=== PATIENT | female | born 1945 | race Caucasian/White ===

== ENCOUNTER → 2016-06-24 | Outpatient (CLI) | payer OTHER | LOC: FIMAGING 15:20 | DX: Z12.31 Encounter for screening mammogram for malignant neoplasm of breast (principal) | CPT/HCPCS: G0202 ==

== ENCOUNTER 2016-12-04 16:32 | Emergency (ER) | payer OTHER ==
[2016-12-04 16:42] VITALS: RESP 16
--- NOTE | 2016-12-04 16:52 | EDPHY ---
H & P Stated Complaint: dog hit pt [place] [employer] /, h/a and nausea episodes since, on pradaxa Time Seen by Provider: 12/04/16 16:44 - Personal History Current Tetanus/Diphtheria Vaccine: Unsure Current Tetanus Diphtheria and Acellular Pertussis (TDAP): Unsure - Medical/Surgical History Hx Asthma: No Hx Chronic Respiratory Disease: No Hx Diabetes: Yes Hx Cardiac Disease: No Hx Renal Disease: No Hx Cirrhosis: No Hx Alcoholism: No Hx HIV/AIDS: No Hx Splenectomy or Spleen Trauma: No Other PMH: TIA, HTN, afib, - Social History Smoking Status: Former smoker Constitutional: Initial Vital Signs Temperature (C) 36.5 C 12/04/16 16:39 Heart Rate 76 12/04/16 16:39 Respiratory Rate 16 12/04/16 16:39 Blood Pressure 148/81 H 12/04/16 16:39 O2 Sat (%) 97 12/04/16 16:39 O2 Delivery Mode Room Air Allergies/Adverse Reactions: No Known Allergies Allergy (Verified 11/27/15 17:55) Home Medications: Medication Instructions Recorded Atorvastatin Calcium [Lipitor 40 80 mg PO HS 07/20/13 mg (RX)] Calcium Carb W/Vit D [Calcium Carb 500 mg PO BID 07/20/13 W/Vit D 500/200 (OTC)] Cholecalciferol Vit D3 [Vitamin D3 1,000 units PO DAILY 07/20/13 (OTC)] Dabigatran Etexilate Mesyl 150 mg PO BID 07/20/13 [Pradaxa 150 MG (RX)] Herbals/Supplements -Info Only 1 each PO AD 07/20/13 Levothyroxine [Synthroid 112 mcg 112 mcg PO DAILY06 07/20/13 (RX)] Levothyroxine [Synthroid 125 mcg 125 mcg PO Q3D 07/20/13 (RX)] [place]-3 Fatty Acids [Fish Oil 1000 1,000 mg PO DAILY 07/20/13 mg (OTC)] metFORMIN HCL [Glucophage] 1,000 mg PO BIDMEAL 07/20/13 Ondansetron Odt [Zofran Odt 4 mg 4 mg PO Q4 PRN #10 tab 12/04/16 (RX)] Medical Decision Making - Diagnostics Imaging Results: Imaging Impressions Head CT 12/04/16 16:56 Impression: 1. Moderate atrophy. 2. No acute hemorrhage, hydrocephalus, or mass effect. 3. Cerebrovascular atherosclerosis. 4. No definite acute infarct. 5. Mild microvascular ischemic gliosis. 6. No epidural or subdural hematoma. 7. No sinusitis. Findings and recommendations discussed with Emergency Department physician, Robert Cabral MD at 17:28 hour, 12/04/2016. Final report concurs with initial preliminary interpretation. ED Course/Re-evaluation: CHIEF COMPLAINT: Head injury HISTORY OF PRESENT ILLNESS: The patient is an anticoagulated 71 y/o female who complains of a headache for the past 5 days after an impact with her dog. She has a history that includes atrial fibrillation, TIA, hypertension, and diabetes. She states for the past week she has been bumping her head on different objects in her house. Five days ago her dog ran into the left lateral side of her head, and she has since had nausea without vomiting and a persistent headache. She currently has a dull headache around her head as well as mild right lateral neck pain. Denies loss of consciousness, speech difficulty , paraesthesia in limbs. REVIEW OF SYSTEMS: A 10 point review of systems was performed and is negative with the exception of the elements mentioned in the history of present illness. PHYSICAL EXAM: HR, BP, O2 Sat, RR. Temp noted General Appearance: Alert, well hydrated, appropriate, and non-toxic appearing. Head: Small bruise on lateral side of right eye. No scalp tenderness or other obvious injury Eyes: Pupils equal, round, reactive to light and accommodation, EOMI, no trauma , no injection. Ears: Clear bilaterally, no perforation, normal landmarks Nose: Atraumatic, no rhinorrhea, clear. Throat: Mucus membranes moist. Neck: Supple, nontender over midline cervical spine, no lymphadenopathy. Respiratory: No retractions, no distress, no wheezes, and no accessory muscle use. Lungs are clear to auscultation bilaterally. Cardiovascular: Regular rate and rhythm, no murmurs, rubs, or gallops. Good capillary refill all extremities. Gastrointestinal: Abdomen is soft, nontender, non-distended, no masses, no rebound, no guarding, no peritoneal signs. Musculoskeletal: Normal active ROM of all extremities, atraumatic. Neurological: Alert, appropriate, and interactive. Non-focal neuro. Skin: No rashes, good turgor, no nodules on palpation. Past medical history: Atrial fibrillation, TIA, hypertension, and diabetes Past surgical history: Declines Family history: Declines Social history: Lives in [place], works at , former smoker. DIAGNOSTICS/PROCEDURES/CRITICAL CARE TIME: Head CT: Negative DIFFERENTIAL DIAGNOSIS: The differential diagnosis for the patient's head injury included but was not limited to concussion, skull fracture, intra- parenchymal contusion, subarachnoid, subdural and epidural hematoma. MEDICAL DECISION MAKING: The patient is an anticoagulated 71 y/o female who presents with a headache for the past 5 days after an impact with her dog. She does have mild right lateral neck tenderness. Due to anticoagulation status with head trauma and persistent headache, we performed a head CT to rule out acute intracranial injury. The head CT was negative. Zofran administered for her nausea. Discussed plan with patient and return precautions, she is comfortable with this plan. Departure - Departure Disposition: Home, Routine, Self-Care Clinical Impression: Post-traumatic headache Qualifiers: Headache chronicity pattern: acute headache Intractability: not intractable Qualified Code(s): G44.319 - Acute post-traumatic headache, not intractable Condition: Good Instructions: General Headache (ED) Additional Instructions: 1. Take Zofran as prescribed when needed for nausea. 2. Follow up with your primary care provider on Wednesday for unimproved symptoms. 3. Return to the ED for sever pain, weakness, numbness, vision changes, or worsening of condition. Referrals: JAVON SMITH [Primary Care Provider] - As per Instructions Prescriptions: Ondansetron Odt [Zofran Odt 4 mg (RX)] 4 mg PO Q4 PRN #10 tab PRN Reason: Nausea/Vomiting, Use 1st Report Scribed for: Robert Cabral Report Scribed by: Nell Perez Date of Report: 12/04/16 Time of Report: 17:33
[2016-12-04 18:01] VITALS: BP 110/62; PULSE 69; TEMP 98.3; O2SAT 92
== END 2016-12-04 18:01 | disposition home or self-care (01) ==
DX: G44.319 Acute post-traumatic headache, not intractable (principal); I10 Essential (primary) hypertension; E11.9 Type 2 diabetes mellitus without complications; Z87.891 Personal history of nicotine dependence; Z79.84 Long term (current) use of oral hypoglycemic drugs; W55.89XA Other contact with other mammals, initial encounter

== ENCOUNTER 2017-09-24 15:54 | Observation (INO) | payer OTHER ==
--- NOTE | 2017-09-24 16:54 | EDPHY ---
H & P Stated Complaint: Disoriented Time Seen by Provider: 09/24/17 15:59 HPI/ROS: CHIEF COMPLAINT: Confusion HISTORY OF PRESENT ILLNESS: This is a 72-year-old female who arrives by ambulance. She was on the phone with her boss and apparently seemed confused, prompting her boss to call the patient's . Her called 911. I have not yet been able to speak with him. The patient cannot recall much of what happened. She remembers being on the phone with her boss but does not recall being confused. She is not certain what happened in between then and now. She thinks that she slept much of the day and I note that she has in her pajamas at 4:00 p.m.. She has a history of hypertension, atrial fibrillation on Pradaxa, and a TIA (CVA?) in 2008. The patient tells me that she recently saw a neurologist who thinks that she actually had a stroke in 2008, not a TIA. She saw Dr. Catalina Coles. It is not clear what imaging has been performed recently. Patient reports global headache today. She denies trauma. She feels somewhat "fuzzy". 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 Her arrived and I interviewed him at 5:00 p.m.. He tells me that he last saw her normal at about 10:00 p.m. last night. When she awoke this morning he thought that she seemed slower than usual, perhaps slightly confused. She did not know what day it was, which is unusual for her. He spent the morning in his office and then went to the store. When he returned, around 2:00 p.m., she was on the telephone with her boss who asked to speak with him. Her boss told him that his was having trouble speaking, using the wrong words, and seemed confused. At that point he called 911. When the paramedics arrived she continued to be confused about the date and reportedly also gave them the wrong date. Although she now seems much better her says that she is not quite as verbal as she normally would be and that she still seems to be having some difficulty collecting her thoughts and speaking them. He has not heard any slurred speech. REVIEW OF SYSTEMS: A ten point review of systems was performed and is negative with the exception of the items mentioned in the HPI. Past medical history: 1. Atrial fibrillation 2. Hypertension 3. TIA or CVA in 2008 4. GERD next 5. Hyperlipidemia 6. IBS Social history: She lives with her . They live between [place] and [place]. 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 She continues to work at the [employer]. She does not use tobacco products. She used to drink alcohol, wine, nightly with dinner but has not had alcohol over the last few months because she has been having some problems with an upset stomach. General Appearance: Alert. Vital signs reviewed. Blood pressure 177/88. Head: Normocephalic atraumatic. Eyes: Pupils equal and round, no conjunctival injection, no discharge. Anicteric. ENT, Mouth: Mucous membranes are moist, no oropharyngeal erythema or edema. Neck: No lymphadenopathy, supple. Respiratory: Lungs are clear to auscultation; no wheezes, rales, or rhonchi. Cardiovascular: Regular rate and rhythm; systolic murmur, no rub or gallop. Gastrointestinal: Abdomen is soft and nontender, no masses or organomegaly, bowel sounds normal. Skin: Warm and dry, no rashes on exposed skin, normal color. Back: Nontender to palpation over the thoracolumbar spine. No CVAT. Extremities: No lower extremity edema, no calf tenderness or swelling. Neurological: Alert. Oriented to person, place, and situation. She gives the date accurately except for the year which she states is 2014, after some thought. Speech is not slurred. Moving all four extremities easily and equally. Cranial nerves II through XII are examined and are intact (visual acuity not tested). Strength is 5 over 5 bilaterally with testing of all major motor groups. Sensation is intact to light touch over all 4 extremities. Deep tendon reflexes are 2+ in the biceps and knees bilaterally. Redspm-ju-pynf is performed accurately. Heel to [place] is accurate. NIHSS 0. Psychiatric: Normal affect. - Personal History Current Tetanus/Diphtheria Vaccine: Yes - Medical/Surgical History Hx Asthma: No Hx Chronic Respiratory Disease: No Hx Diabetes: Yes Hx Cardiac Disease: No Hx Renal Disease: No Hx Cirrhosis: No Hx Alcoholism: No Hx HIV/AIDS: No Hx Splenectomy or Spleen Trauma: No Other PMH: TIA, HTN, afib, - Social History Smoking Status: Former smoker Constitutional: Initial Vital Signs Temperature (C) 37.3 C 09/24/17 16:10 Heart Rate 67 09/24/17 16:10 Respiratory Rate 22 H 09/24/17 16:10 Blood Pressure 177/88 H 09/24/17 16:10 O2 Sat (%) 96 09/24/17 16:10 O2 Delivery Mode Room Air Allergies/Adverse Reactions: No Known Allergies Allergy (Verified 11/27/15 17:55) Home Medications: Medication Instructions Recorded Atorvastatin Calcium [Lipitor 40 80 mg PO HS 09/24/17 mg (*)] Cholecalciferol Vit D3 [Vitamin D3 1,000 units PO DAILY 09/24/17 (*)] Dabigatran Etexilate Mesyl 150 mg PO BID 09/24/17 [Pradaxa 150 MG (*)] Herbals/Supplements -Info Only 1 ea PO DAILY 09/24/17 Levothyroxine [Synthroid 100 mcg 100 mcg PO DAILY06 09/24/17 (*)] Ondansetron Odt [Zofran Odt 4 mg 4 mg PO Q4H PRN 09/24/17 (*)] Vayacog 100-19 Capsule 1 cap PO DAILY 09/24/17 Medical Decision Making - Diagnostics EKG Interpretation: 12 lead EKG is interpreted in Trace master View by emergency department physician. ED Course/Re-evaluation: 72-year-old high functioning female who presents with apparent confusion. At time of my evaluation she is neurologically intact with an NIHSS of 0. However, she does gives the year as 2014. Otherwise she is fully oriented. She has no focal neurologic signs. Head CT with atrophy and probably white matter small vessel disease. No acute findings. ICH was a possibility, as she is on an anticoagulant. I reviewed the images and discussed them with Dr. Michael Corona. Doubt stroke, TIA possible. Her previous episode in 2005 is thought to have been stroke. She is on pradaxa for Afib and is currently in sinus rhythm. She does not drink alcohol and I do not suspect intoxication. There is no evidence to support a diagnosis of infection. On review of records, I note that she was admitted in 2013 with confusion and a sodium of 128. She is hyponatremic with sodium of 128 tonight and that seems the most likely cause of her encephalopathy. She does not describe drinking copious amounts of water, but does have some diarrhea. She is being admitted to the hospitalist service for further evaluation and treatment of her hyponatremia. Differential Diagnosis: Altered mental status including but not limited to hypoglycemia, infectious process, electrolyte abnormality, head injury and intoxicants. - Data Points Laboratory Results: Laboratory Results 09/24/17 16:30 09/24/17 16:26 09/24/17 09/24/17 17:00 15:54 TSH 0.187 uIU/mL L uIU/mL (0.465-4.680) Cortisol AM Sample 27.1 ug/dL H ug/dL (4.5-22.7) Urine Osmolality 508 mosmo/kg mosmo/kg (300-900) Medications Given: Atorvastatin Calcium (Lipitor) 80 mg PO HS KATE Stop: 03/23/18 20:59 Last Admin: 09/24/17 20:44 Dose: 80 mg Dabigatran (Pradaxa) 150 mg PO BID KATE Stop: 03/23/18 20:59 Last Admin: 09/24/17 20:43 Dose: 150 mg Levothyroxine Sodium (Synthroid) 100 mcg PO DAILY06 KATE Stop: 03/24/18 05:59 Last Admin: 09/25/17 06:23 Dose: 100 mcg Departure - Departure Disposition: [facility] Inpatient Acute Clinical Impression: Hyponatremia Condition: Fair
--- NOTE | 2017-09-24 17:00 | CPEKG ---
Heart Rate: 65 RR Interval: 923 P-R Interval: 172 QRSD Interval: 92 QT Interval: 428 QTC Interval: 445 P [place]: 43 QRS [place]: -29 T Wave [place]: -6 EKG Severity - ABNORMAL ECG - EKG Impression: SINUS RHYTHM EKG Impression: LVH BY VOLTAGE EKG Impression: BORDERLINE T ABNORMALITIES, INFERIOR LEADS Electronically Signed By: Antonietta Rae 24-Sep-2017 23:31:43
[2017-09-24 17:15] LABS: INR 1.27 (0.83-1.16); PLATELET COUNT 283 10^3/uL (150-400); PROTIME(PATIENT) 16.1 SEC (12.0-15.0)
[2017-09-24] MEDS ORDERED: ONDANSETRON DISINTEGRATING 4 MG TAB PO PRN (19:16)
--- NOTE | 2017-09-24 19:38 | GHP ---
[f rep st] HISTORY AND PHYSICAL DATE OF ADMISSION: 09/24/2017 CHIEF COMPLAINT: Confusion. HISTORY OF PRESENT ILLNESS: This is a 72-year-old female with history of atrial fibrillation, prior stroke, and similar episode of confusion 4 years ago that was attributed to hyponatremia. The patient awoke this morning and was somewhat out of sorts per her . She was not aware that today was the first day of September which the patient's says is unusual for her. The patient we nt about her normal day but at around 2:30 while on the phone with a colleague, she became very confu sed to the point where her became concerned and called 911. The patient denies any focal numbness or weakness. Currently, her confusion is getting better. She denies drinking excessive amounts of water. She tries to drink several large glasses per day, but de nies drinking gallons. She also has irritable bowel syndrome and does have frequent diarrhea. She s tates her diet is well balanced and described as regular. PAST MEDICAL HISTORY: 1. Atrial fibrillation. 2. CVA. 3. Diabetes type 2. 4. Similar episode 4 years ago attributed to hyponatremia. 5. Hypothyroidism. HOME MEDICATIONS: Reviewed. Refer to [employer] for details. PAST SURGICAL HISTORY: Denies. ALLERGIES: No known drug allergies. SOCIAL HISTORY: She is a former smoker. She works at [employer]. She denies any alcohol or illicit drug us e. FAMILY HISTORY: Reviewed and noncontributory, but is significant for coronary artery disease in her father who at the age of 64. REVIEW OF SYSTEMS: Comprehensive 10-point review of systems was done and negative, except for as men tioned in the HPI. PHYSICAL EXAMINATION: VITAL SIGNS: Blood pressure 154/92, pulse of 67, respiratory rate 16, O2 satu ration 92% on room air. Temperature afebrile. GENERAL: No acute distress. HEAD: Normocephalic, a traumatic. EYES: PERRLA. Sclerae are anicteric. MOUTH: Moist mucous membranes. NECK: Supple. No lymphadenopathy. CARDIOVASCULAR: Regular rate and rhythm with systolic murmur at right upper rashid rnal border. No JVD or lower extremity edema. PULMONARY: Lungs are clear. No wheezes, rales, or r honchi. ABDOMEN: Soft, nontender, nondistended. No guarding or rebound tenderness. Normoactive costa wel sounds. EXTREMITIES: No clubbing or cyanosis. NEURO: Cranial nerves 2-12 grossly intact. The re is no facial droop. No pronator drift. Speech is normal. Alert and oriented to person, place, a nd time at the time of my exam. DIAGNOSTICS: EKG, which I visualized and personally interpreted, shows sinus rhythm, rate 65 beats p er minute. No acute ischemic changes. There is some evidence of LVH. Head CT shows no acute findin gs. WBC is 10.2, hemoglobin 15.8, hematocrit 42, platelets 283. Sodium 128, potassium 4.1, chloride 96, CO2 of 16, BUN 9, creatinine 0.5, glucose 117. UA: 1+ ketones, 5-10 RBCs, 2+ glucose. ASSESSMENT AND PLAN: This is a 72-year-old female with history of atrial fibrillation, previous stro ke and previous episode of confusion attributed to hyponatremia, presenting with: 1. Acute encephalopathy, most likely metabolic in the setting of hyponatremia of unclear etiology. 2. History of atrial fibrillation and cerebrovascular accident, anticoagulated with Pradaxa. 3. History of hypothyroidism. 4. History of diabetes mellitus type 2, appears to be controlled. PLAN: 1. Place on observation. 2. Will work up hyponatremia to evaluate for SIADH and other causes. 3. Check TSH given her hyponatremia. 4. Consider workup of diarrhea which is likely contributing to her hyponatremia if diarrhea persists . /[id number]/MODL
[2017-09-24] MEDS: DABIGATRAN ETEXILATE MESYL 150 MG CAP PO SCH (20:43)
[2017-09-24] MEDS ORDERED: ATORVASTATIN CALCIUM 40 MG TAB PO SCH (21:00)
[2017-09-25 04:37] LABS: PLATELET COUNT 256 10^3/uL (150-400)
[2017-09-25] MEDS ORDERED: LEVOTHYROXINE 100 MCG TAB PO SCH (06:00)
[2017-09-25 07:56] VITALS: BP 145/72
[2017-09-25] MEDS: DABIGATRAN ETEXILATE MESYL 150 MG CAP PO SCH (08:20)
[2017-09-25] MEDS ORDERED: VAYACOG PO SCH (09:00)
[2017-09-25] MEDS ORDERED: CHOLECALCIFEROL VIT D3 1,000 UNITS TAB PO SCH (09:00)
[2017-09-25] MEDS ORDERED: NS 1,000 ML IV ONE (09:05)
--- NOTE | 2017-09-25 14:06 | GDS ---
[f rep st] DISCHARGE SUMMARY FINAL DIAGNOSES: 1. Acute encephalopathy. 2. Hyponatremia. 3. Mixed metabolic acidosis. 4. Irritable bowel syndrome/diarrhea. 5. Diabetes mellitus. 6. Atrial fibrillation. 7. History of cerebrovascular accident. 8. Hypothyroid, on replacement. HOSPITAL COURSE: A 72-year-old female admitted with acute encephalopathy/confusion, found to be hypo natremic. Urine osms consistent with hypovolemia. Sodium markedly improved with 1 L of normal salin e. Her mental status is back to her normal, and her sodium is 136 on discharge. She was also quite acidotic on admission. I suspect that this was due to bicarbonate loss from signi ficant diarrhea. This has resolved with fluids as well. Bicarbonate on discharge is 22. We had a l maria guadalupe discussion about her diarrhea. She has been diagnosed with IBS. Potential other causes include metformin, as well as iatrogenic hyperthyroid (her TSH here is 0.187). I recommend stopping her metf ormin for 2 reasons; 1, that it may cause diarrhea; and 2, that it may cause an acidosis. She will f ollow up with Dr. Jimenes in 1-2 weeks to determine ongoing diabetes management. I also recommend t hat she have a TSH rechecked when she is not acutely ill in about 2 weeks as well. She may need some adjustments in her Synthroid dose. For now, she will continue her other treatments without change. FOLLOWUP: Dr. Jimenes to follow up on her diabetes as noted above, as well as her hypothyroid as no elias above. /[id number]/MODL
--- NOTE | 2017-09-25 15:38 | ASMTCMCOM ---
CM Note CM Note Notes: CM chart review. Patient is 72 year old female admitted via [facility] ED for confusion and has history of A-fib, HTN, TIA/CVA in 2008, treated for hyponatremia. Patient lives at home with , [place], [facility]. Patient has discharge orders, CM met with patient and delivered IM, patient signed receipt and states her will be taking her home and helping with follow up recommendations patient states she will follow up with her PCP next week. CM available to support any unidentified D/C needs. D/C plan: Home independently this afternoon. Date Signed: 09/25/2017 03:37 PM Electronically Signed By:Alexandra Whitely
== END 2017-09-25 16:05 | disposition home or self-care (01) ==
LOC: EDUNIT# → INTOOBSV 18:06 → F2W 19:30
PROVIDERS: ADMIT Family Medicine; ATTEND Family Medicine
DX: G93.40 Encephalopathy, unspecified (principal); E87.1 Hypo-osmolality and hyponatremia; E87.4 Mixed disorder of acid-base balance; K58.0 Irritable bowel syndrome with diarrhea; E11.9 Type 2 diabetes mellitus without complications; I48.91 Unspecified atrial fibrillation; E03.9 Hypothyroidism, unspecified; Z86.73 Personal history of transient ischemic attack (TIA), and cerebral infarction without residual deficits; Z87.891 Personal history of nicotine dependence
CPT/HCPCS: 70450; 93005; 99285; G0378

== ENCOUNTER → 2017-10-14 | Outpatient (CLI) | payer OTHER | LOC: BHFA 14:45 | PROVIDERS: ATTEND Internal Medicine Cardiovascular Disease | DX: R01.1 Cardiac murmur, unspecified (principal); I48.91 Unspecified atrial fibrillation ==

== ENCOUNTER 2018-07-24 15:38 | Emergency (ER) | payer OTHER ==
--- NOTE | 2018-07-24 16:09 | EDPHY ---
HPI/HX/ROS/PE/MDM Narrative: CHIEF COMPLAINT: Confusion, memory loss HPI: This patient is an anticoagulated (Pradaxa) 73 year old female with history of diabetes, atrial fibrillation, IBS, and hypothyroidism. She arrives today with her stating "I've been very confused most of the day". She cannot remember most of the day including whether she took her regular medications or had anything to drink. She drove herself from [place] to the [facility] where she works but could not remember why she did when she arrived, and following this decided to come to the ED for evaluation. She has history of possible TIA vs stroke in 2009 and history of acute encephalopathy secondary to dehydration in 2018. She notes she has had several episodes of diarrhea related to her IBS recently. She states her BGL has been stable lately. Additionally, she notes she fell yesterday while hiking and struck the back of her head. Her feet are currently slightly tingly bilaterally. She denies any other paresthesias, numbness, or weakness in her extremities. She denies any marijuana use. Currently, she is feeling better than earlier, though not back to normal, and complains of headache as well. No nausea, vomiting, chest pain, shortness of breath, or other associated symptoms. REVIEW OF SYSTEMS: A comprehensive 10 system review of systems is otherwise negative aside from elements mentioned in the history of present illness and medical decision making. PMH: 1. Atrial fibrillation (Pradaxa) 2. Diabetes mellitus (Metformin) 3. Hypothyroidism (Levothyroxine) Past medical records reviewed including admission for confusion secondary to hyponatremia/hypovolemia 09/24/2017. SOCIAL HISTORY: Works at the [employer]. , at bedside. Lives in [place]. PHYSICAL EXAM: General:Patient is alert, in no acute distress. ENT:Eyes are normal to inspection. ENT inspection normal. Neck: Normal inspection. Full range of motion. Respiratory:No respiratory distress. Breath sounds normal bilaterally. Cardiovascular: Regular rate and rhythm. Strong peripheral pulses. Normal cap refill. Abdomen:The abdomen is nontender to palpation. There are no peritoneal signs. There are normal bowel sounds. Back: Normal to inspection. No tenderness to palpation. Skin: Normal color. No rash. Warm and dry. Extremities: Normal appearance. Full range of motion. Neuro: Oriented x3. Normal motor function. Normal sensory function. ED Course: 73 y/o female presents with confusion and amnesia beginning this morning. No focal neuro deficits on exam. She continues to feel slightly confused, though improved compared to earlier today. Plan for EKG, CT head, labs including CBC, chemistries, troponin, UA. EKG was ordered and interpreted by myself. Please see [facility] system for official reading. Reviewed laboratory studies. These are largely unremarkable. No evidence of electrolyte imbalance, infection. UA negative for UTI. BGL at baseline for patient. 16:[address] Corona, radiologist. CT head negative for acute processes. Reassessed patient, discussed imaging and laboratory results. She feels better currently. Plan for MRI brain for further evaluation. 17:[address] Corona, radiologist. MRI brain negative for acute processes. Significant atrophy noted. Reassessed, discussed MRI results. Patient continues to feel well and asymptomatic. Plan to discharge home in good condition with referral to neurology. Follow up and return precautions discussed. She is comfortable with this plan. MDM: This patient presents with altered mental status, best described as generalized confusion, which is since resolved. Looking through her chart, she appears to have evidence of multiple episodes similar to this one in the past. She has been seen by a neurologist with a negative workup to date. We performed an extensive workup here in the emergency department today including negative labs , CT and MRI of the brain. Given lack of significant abnormal findings, this seems most consistent with possible onset of dementia. I had very serious discussion with the patient and her regarding her safety. In particular , I strongly stressed that she should not be allowed to drive or put herself or others in any position of potential harm when she is experiencing these symptoms. I also stressed the need for close Neurology follow-up. - Data Points Imaging Results: Imaging Impressions Head CT 07/24/18 16:22 Impression: Elderly brain with atrophy and probable white matter small vessel disease. Nothing acute is identified. Results called and discussed with Fahad Callejas MD on 07/24/2018 at 16:47. Brain MRI 07/24/18 16:52 Impression: 1. Atrophy and probable small vessel ischemic disease are noted. 2. Negative for acute ischemia. Imaging: Discussed imaging studies w/ on call pharmacy technician Radiologist Laboratory Results: Laboratory Results 07/24/18 16:10 07/24/18 16:10 07/24/18 07/24/1819 16:14 16:10 16:10 WBC 8.68 10^3/uL 10^3/uL (3.80-9.50) RBC 4.86 10^6/uL 10^6/uL (4.18-5.33) Hgb 15.8 g/dL g/dL (12.6-16.3) Hct 44.3 % % (38.0-47.0) MCV 91.2 fL fL (81.5-99.8) MCH 32.5 pg pg (27.9-34.1) MCHC 35.7 g/dL g/dL (32.4-36.7) RDW 11.2 % L % (11.5-15.2) Plt Count 292 10^3/uL 10^3/uL (150-400) MPV 9.1 fL fL (8.7-11.7) Neut % (Auto) 67.0 % % (39.3-74.2) Lymph % (Auto) 25.3 % % (15.0-45.0) [place] % (Auto) 6.5 % % (4.5-13.0) Eos % (Auto) 0.7 % % (0.6-7.6) Baso % (Auto) 0.3 % % (0.3-1.7) Nucleat RBC Rel Count 0.0 % % (0.0-0.2) Absolute Neuts (auto) 5.81 10^3/uL 10^3/uL (1.70-6.50) Absolute Lymphs (auto) 2.20 10^3/uL 10^3/uL (1.00-3.00) Absolute Monos (auto) 0.56 10^3/uL 10^3/uL (0.30-0.80) Absolute Eos (auto) 0.06 10^3/uL 10^3/uL (0.03-0.40) Absolute Basos (auto) 0.03 10^3/uL 10^3/uL (0.02-0.10) Absolute Nucleated RBC 0.00 10^3/uL 10^3/uL (0-0.01) Immature Gran % 0.2 % % (0.0-1.1) Immature Gran # 0.02 10^3/uL 10^3/uL (0.00-0.10) Sodium 136 mEq/L mEq/L (135-145) Potassium 3.5 mEq/L mEq/L (3.5-5.2) Chloride 104 mEq/L mEq/L (97-110) Carbon Dioxide 20 mEq/l L mEq/l (22-31) Anion Gap 12 mEq/L mEq/L (6-14) BUN 10 mg/dL mg/dL (7-23) Creatinine 0.6 mg/dL mg/dL (0.6-1.0) Estimated GFR > 60 Glucose 126 mg/dL H mg/dL (70-100) Calcium 10.0 mg/dL mg/dL (8.5-10.4) POC Troponin I 0.01 ng/mL ng/mL (0.00-0.08) Urine Color Urine Appearance Urine pH Ur Specific [place] Urine Protein Urine Ketones Urine Blood Urine Nitrate Urine Bilirubin Urine Urobilinogen Ur Leukocyte Esterase Urine Glucose 07/24/18 16:01 WBC RBC Hgb Hct MCV MCH MCHC RDW Plt Count MPV Neut % (Auto) Lymph % (Auto) [place] % (Auto) Eos % (Auto) Baso % (Auto) Nucleat RBC Rel Count Absolute Neuts (auto) Absolute Lymphs (auto) Absolute Monos (auto) Absolute Eos (auto) Absolute Basos (auto) Absolute Nucleated RBC Immature Gran % Immature Gran # Sodium Potassium Chloride Carbon Dioxide Anion Gap BUN Creatinine Estimated GFR Glucose Calcium POC Troponin I Urine Color PALE YELLOW Urine Appearance CLEAR Urine pH 8.0 H (5.0-7.5) Ur Specific [place] 1.001 L (1.002-1.030) Urine Protein NEGATIVE (NEGATIVE) Urine Ketones NEGATIVE (NEGATIVE) Urine Blood NEGATIVE (NEGATIVE) Urine Nitrate NEGATIVE (NEGATIVE) Urine Bilirubin NEGATIVE (NEGATIVE) Urine Urobilinogen NEGATIVE EU EU (0.2-1.0) Ur Leukocyte Esterase NEGATIVE (NEGATIVE) Urine Glucose NEGATIVE (NEGATIVE) Point of Care Test Results: Chemistry 07/24/18 16:14 POC Troponin I 0.01 ng/mL ng/mL (0.00-0.08) General Time Seen by Provider: 07/24/18 15:53 Initial Vital Signs: Initial Vital Signs Temperature (C) 37 C 07/24/18 15:45 Heart Rate 69 07/24/18 15:45 Respiratory Rate 18 07/24/18 15:45 Blood Pressure 176/87 H 07/24/18 15:45 O2 Sat (%) 98 07/24/18 15:45 O2 Delivery Mode Room Air Allergies/Adverse Reactions: No Known Allergies Allergy (Verified 07/24/18 15:45) Home Medications: Medication Instructions Recorded Atorvastatin Calcium [Lipitor 40 80 mg PO HS 09/24/17 mg (*)] Cholecalciferol Vit D3 [Vitamin D3 1,000 units PO DAILY 09/24/17 (*)] Dabigatran Etexilate Mesyl 150 mg PO BID 09/24/17 [Pradaxa 150 MG (*)] Herbals/Supplements -Info Only 1 ea PO DAILY 09/24/17 Levothyroxine [Synthroid 100 mcg 100 mcg PO DAILY06 09/24/17 (*)] Ondansetron Odt [Zofran Odt 4 mg 4 mg PO Q4H PRN 09/24/17 (*)] Vayacog 100-19 Capsule 1 cap PO DAILY 09/24/17 Lexapro 07/24/18 Departure - Departure Disposition: Home, Routine, Self-Care Clinical Impression: Altered mental status Condition: Good Instructions: Altered Mental Status (ED) Additional Instructions: Follow up with neurology as we discussed, within one week. We have provided a referral to a local neurologist. We recommend ensuring that you do not drive if you experience similar symptoms in the future. Return to the emergency department for recurrence of symptoms, severe headache, fever, chest pain, shortness of breath, numbness or weakness in your extremities , or other worsening of condition or further concerns. Referrals: JAVON SMITH [Primary Care Provider] - As per Instructions Grant Rendon MD [Medical Doctor] - As per Instructions Report Scribed for: Fahad Callejas Report Scribed by: Shea Orozco Date of Report: 07/24/18 Time of Report: 16:09 Physician Review and Approval Statement: Portions of this note were transcribed by an ED scribe. I personally performed the history, physical exam, and medical decision making; and confirm the accuracy of the information in the transcribed note.
[2018-07-24 16:25] LABS: PLATELET COUNT 292 10^3/uL (150-400)
[2018-07-24 18:27] VITALS: BP 145/87
--- NOTE | 2018-07-24 22:48 | CPEKG ---
Test Reason : OPEN Blood Pressure : / mmHG Vent. Rate : 062 BPM Atrial Rate : 062 BPM P-R Int : 163 ms QRS Dur : 092 ms QT Int : 446 ms P-R-T Axes : -04 -29 005 degrees QTc Int : 453 ms Sinus rhythm Inferior infarct, old Confirmed by Fahad Callejas ([id number]) on 07/24/2018 10:48:31 PM Referred By: Fahad Callejas Confirmed By:Fahad Callejas
== END 2018-07-24 18:27 | disposition home or self-care (01) ==
DX: R41.82 Altered mental status, unspecified (principal); E11.9 Type 2 diabetes mellitus without complications; E03.9 Hypothyroidism, unspecified; I48.91 Unspecified atrial fibrillation; Z79.01 Long term (current) use of anticoagulants; Z86.73 Personal history of transient ischemic attack (TIA), and cerebral infarction without residual deficits
CPT/HCPCS: 70551-PN; 84484-ER

== ENCOUNTER → 2018-09-27 | Outpatient (CLI) | payer OTHER | LOC: FCPNEURO 13:50 ==